=== PATIENT | female | born 1995 | race Caucasian/White ===

== ENCOUNTER 2024-07-20 12:03 | Emergency (ER) | payer SELFPAY ==
[~2024-07-20] VITALS: Ht 162.6 cm; Wt 55.0 kg
[2024-07-20 12:06] VITALS: TEMP 98.7
[2024-07-20 15:05] VITALS: BP 117/67; PULSE 70; RESP 16; O2SAT 99
== END 2024-07-20 15:12 | disposition home or self-care (01) ==
LOC: EMS 12:03
DX: S93.402A Sprain of unspecified ligament of left ankle, initial encounter (principal); X58.XXXA Exposure to other specified factors, initial encounter; Y93.89 Activity, other specified; Y92.89 Other specified places as the place of occurrence of the external cause; Y99.8 Other external cause status
CPT/HCPCS: 72072; 99284; 73610-TC; Z7502